=== PATIENT | female | born 1995 | race Caucasian/White ===

== ENCOUNTER 2017-06-18 08:33 | Emergency (ER) | payer MEDICAID ==
[2017-06-18] MEDS: ACETAMINOPHEN 500 MG TAB PO (10:59)
[2017-06-18 11:11] LABS: ADD MAN DIFF? NO
[2017-06-18 11:15] LABS: WHITE BLOOD COUNT 8.6 10^3/ul (4.8-10.8)
[2017-06-18 11:15] LABS: BASOPHILS % 0.4 % (0.0-2.0); EOSINOPHILS # 0.1 10^3/ul (0.0-0.5); EOSINOPHILS % 1.2 % (0.0-7.0); HEMATOCRIT 35.8 % (37.0-47.0); HEMOGLOBIN 12.5 g/dl (12.0-16.0); LYMPHOCYTES # 2.6 10^3/ul (0.8-2.9); LYMPHOCYTES % 30.1 % (15.0-51.0); MEAN CORPUSCULAR HEMOGLOBIN 31.6 pg (29.0-33.0); MEAN CORPUSCULAR HGB CONC 34.9 g/dl (32.0-37.0); MEAN CORPUSCULAR VOLUME 90.6 fl (82.0-101.0); MEAN PLATELET VOLUME 10.8 fl (7.4-10.4); MONOCYTE # 0.4 10^3/ul (0.3-0.9); NEUTROPHIL # 5.4 10^3/ul (1.6-7.5); NEUTROPHILS % 62.8 % (39.0-77.0); PLATELET COUNT 184 10^3/UL (140-415); RED BLOOD COUNT 3.95 10^6/ul (4.20-5.40); RED CELL DISTRIBUTION WIDTH 12.6 % (11.5-14.5)
[2017-06-18 11:19] LABS: ADD UMIC NO; UR ASCORBIC ACID NEGATIVE (NEGATIVE); UR BILIRUBIN (Dip) NEGATIVE (NEGATIVE); UR BLOOD (Dip) NEGATIVE (NEGATIVE); UR CLARITY SLIGHTLY CLOUDY (CLEAR); UR COLOR YELLOW (YELLOW); UR GLUCOSE (Dip) NEGATIVE (NEGATIVE); UR KETONES (Dip) NEGATIVE (NEGATIVE); UR LEUKOCYTE ESTERASE (Dip) NEGATIVE Leu/ul (NEGATIVE); UR MUCUS FEW /HPF (NONE SEEN); UR NITRITE (Dip) NEGATIVE (NEGATIVE); UR RBC 3 /HPF (0-5); UR SPECIFIC GRAVITY (Dip) 1.021 (1.003-1.030); UR SQUAMOUS EPITHELIAL CELL MODERATE /HPF (FEW); UR TOTAL PROTEIN (Dip) NEGATIVE (NEGATIVE); UR UROBILINOGEN (Dip) NEGATIVE (NEGATIVE); UR WBC 2 /HPF (0-5)
[2017-06-18 11:33] LABS: ALANINE AMINOTRANSFERASE 28 IU/L (13-69); ALBUMIN 4.2 g/dl (3.3-4.9); ALBUMIN/GLOBULIN RATIO 1.23; ALKALINE PHOSPHATASE 44 IU/L (42-121); ANION GAP 13 (8-16); ASPARTATE AMINO TRANSFERASE 15 IU/L (15-46); BILIRUBIN,INDIRECT 0.3 mg/dl (0-1.1); BILIRUBIN,TOTAL 0.3 mg/dl (0.2-1.3); BLOOD UREA NITROGEN 9 mg/dl (7-20); CALCIUM 8.8 mg/dl (8.4-10.2); CARBON DIOXIDE 26 mmol/L (21-31); CHLORIDE 102 mmol/L (97-110); CREATININE 0.47 mg/dl (0.44-1.00); GLUCOSE 83 mg/dl (70-220); POTASSIUM 3.7 mmol/L (3.5-5.1); SODIUM 137 mmol/L (135-144); TOTAL PROTEIN 7.6 g/dl (6.1-8.1)
== END 2017-06-18 12:55 | disposition home or self-care (01) ==
LOC: FTE 08:33
DX: O26.891 Other specified pregnancy related conditions, first trimester (principal); R10.33 Periumbilical pain; R10.32 Left lower quadrant pain; O99.89 Other specified diseases and conditions complicating pregnancy, childbirth and the puerperium; M54.5 Low back pain; R10.2 Pelvic and perineal pain; Z3A.11 11 weeks gestation of pregnancy
CPT/HCPCS: 36415; 76705; 76801; 80053; 81001; 81003; 84702; 85025; 86900; 86901; 99284-25

== ENCOUNTER 2017-09-19 09:32 | Outpatient (CLI) | payer MEDICAID | END 2017-09-19 14:55 | disposition home or self-care (01) | LOC: OBT 09:32 → L-D 09:33 → OBT 14:55 | DX: O26.892 Other specified pregnancy related conditions, second trimester (principal); M54.5 Low back pain; R10.2 Pelvic and perineal pain; Z3A.24 24 weeks gestation of pregnancy | CPT/HCPCS: 76815 ==

== ENCOUNTER 2018-01-08 08:52 | Outpatient (CLI) | payer MEDICAID | END 2018-01-08 11:27 | disposition home or self-care (01) | LOC: OBT 08:52 → L-D 08:52 → OBT 11:27 | DX: O48.0 Post-term pregnancy (principal); Z3A.40 40 weeks gestation of pregnancy | CPT/HCPCS: 76818 ==

== ENCOUNTER 2018-01-10 17:08 | Inpatient (IN) | payer MEDICAID ==
[2018-01-10] MEDS ORDERED: METHYLERGONOVINE 0.2 MG INJ IM (18:00)
[2018-01-10] MEDS ORDERED: MISOPROSTOL 200 MCG TAB PR (18:00)
[2018-01-10] MEDS ORDERED: OXYTOCIN 30 UNITS/LR 500 ML IV (18:00)
[2018-01-10] MEDS ORDERED: IBUPROFEN 600 MG TAB PO (18:00)
[2018-01-10] MEDS ORDERED: CARBOPROST 250 MCG INJ IM (18:00)
[2018-01-10] MEDS ORDERED: OXYCODONE/ACETAMINOPHEN (5/325) TAB PO (18:00)
[2018-01-10] MEDS ORDERED: LIDOCAINE 1% (MPF) 30 ML INJ INJ (18:00)
[2018-01-10] MEDS: LACTATED RINGER'S 1,000 ML IV* (19:59)
[2018-01-10 20:00] LABS: ADD MAN DIFF? NO
[2018-01-10 20:04] LABS: WHITE BLOOD COUNT 8.6 10^3/ul (4.8-10.8)
[2018-01-10 20:04] LABS: BASOPHILS % 0.5 % (0.0-2.0); EOSINOPHILS # 0.2 10^3/ul (0.0-0.5); EOSINOPHILS % 1.9 % (0.0-7.0); HEMATOCRIT 34.5 % (37.0-47.0); LYMPHOCYTES # 2.7 10^3/ul (0.8-2.9); LYMPHOCYTES % 30.8 % (15.0-51.0); MEAN CORPUSCULAR HEMOGLOBIN 32.4 pg (29.0-33.0); MEAN CORPUSCULAR HGB CONC 34.8 g/dl (32.0-37.0); MEAN CORPUSCULAR VOLUME 93.2 fl (82.0-101.0); MEAN PLATELET VOLUME 11.9 fl (7.4-10.4); MONOCYTE # 0.8 10^3/ul (0.3-0.9); MONOCYTES % 8.9 % (0.0-11.0); NEUTROPHIL # 4.8 10^3/ul (1.6-7.5); NEUTROPHILS % 55.9 % (39.0-77.0); PLATELET COUNT 166 10^3/UL (140-415)
[2018-01-10] MEDS: MISOPROSTOL 25 MCG CAPSULE PO (20:08)
[2018-01-10 20:24] LABS: INR 1.02; PARTIAL THROMBOPLASTIN TIME 31.1 Sec (25.0-35.0); PROTIME 13.5 Sec (11.9-14.9); PT RATIO 1.1
[2018-01-11] MEDS: MISOPROSTOL 25 MCG CAPSULE PO ×2 (00:07→06:23)
[2018-01-11] MEDS: LACTATED RINGER'S 1,000 ML IV* ×4 (01:59→15:13)
[2018-01-11] MEDS: BUTORPHANOL 2 MG INJ IV (11:11)
[2018-01-11] MEDS ORDERED: FENTAnyl 2MCG/ML-ROPIV 0.2% 100 ML (13:22)
[2018-01-11] MEDS ORDERED: OXYTOCIN 30 UNITS/LR 500 ML IV (13:30)
[2018-01-11] MEDS ORDERED: NALOXONE (0.4 MG/ML) INJ IV (14:00)
[2018-01-11] MEDS ORDERED: FENTAnyl 2MCG/ML-ROPIV 0.2% 100 ML BAG EPI (14:00)
[2018-01-11 15:59] LABS: RAPID PLASMA REAGIN NONREACTIVE (NR)
[2018-01-11] MEDS: OXYTOCIN 30 UNITS/LR 500 ML IV ×3 (16:02→20:48)
[2018-01-11] MEDS ORDERED: LACTATED RINGER'S 1,000 ML IV* (16:06)
[2018-01-11] MEDS ORDERED: DEXTROSE 5%-LR 1,000 ML IV (16:06)
[2018-01-11] MEDS ORDERED: SENNA/DOCUSATE NA (8.6MG/50MG) TAB PO (16:30)
[2018-01-11] MEDS ORDERED: ACETAMINOPHEN 325 MG TAB PO (16:30)
[2018-01-11] MEDS ORDERED: MISOPROSTOL 200 MCG TAB PR (16:30)
[2018-01-11] MEDS ORDERED: DIBUCAINE 1% 30 GM OINT PR (16:30)
[2018-01-11] MEDS ORDERED: CARBOPROST 250 MCG INJ IM (16:30)
[2018-01-11] MEDS ORDERED: ZOLPIDEM 5 MG TAB PO (16:30)
[2018-01-11] MEDS ORDERED: ONDANSETRON 4 MG INJ IV (16:30)
[2018-01-11] MEDS ORDERED: OXYCODONE/ASPIRIN (4.88/325) TAB PO (16:30)
[2018-01-11] MEDS ORDERED: DIPHENHYDRAMINE 50 MG INJ IV (16:30)
[2018-01-11] MEDS: METHYLERGONOVINE 0.2 MG INJ IM (17:24)
[2018-01-11] MEDS: ONDANSETRON 4 MG INJ IV (17:48)
[2018-01-11] MEDS: IBUPROFEN 600 MG TAB PO ×2 (18:41→23:42)
[2018-01-11] MEDS: BENZOCAINE 20% 56 ML SPRAY TOP (18:41)
[2018-01-11] MEDS: WITCH HAZEL/GLYCERIN PAD PR (18:41)
[2018-01-11] MEDS: LANOLIN 7 GM TUBE TOP (18:42)
[2018-01-12] MEDS: OXYTOCIN 30 UNITS/LR 500 ML IV (00:21)
[2018-01-12] MEDS: IBUPROFEN 600 MG TAB PO ×4 (06:00→23:31)
[2018-01-12 09:24] LABS: ADD MAN DIFF? NO
[2018-01-12 09:37] LABS: WHITE BLOOD COUNT 10.6 10^3/ul (4.8-10.8)
[2018-01-12 09:37] LABS: BASOPHILS % 0.3 % (0.0-2.0); EOSINOPHILS # 0.1 10^3/ul (0.0-0.5); HEMATOCRIT 32.2 % (37.0-47.0); HEMOGLOBIN 11.1 g/dl (12.0-16.0); LYMPHOCYTES # 2.6 10^3/ul (0.8-2.9); LYMPHOCYTES % 24.9 % (15.0-51.0); MEAN CORPUSCULAR HGB CONC 34.5 g/dl (32.0-37.0); MEAN CORPUSCULAR VOLUME 92.8 fl (82.0-101.0); MEAN PLATELET VOLUME 11.9 fl (7.4-10.4); MONOCYTE # 0.8 10^3/ul (0.3-0.9); MONOCYTES % 7.2 % (0.0-11.0); PLATELET COUNT 138 10^3/UL (140-415); RED BLOOD COUNT 3.47 10^6/ul (4.20-5.40); RED CELL DISTRIBUTION WIDTH 12.9 % (11.5-14.5)
[2018-01-12 09:40] LABS: POSITIVE DIFF @See below
[2018-01-13] MEDS: IBUPROFEN 600 MG TAB PO ×2 (06:06→11:59)
[2018-01-13] MEDS: MEASLES,MUMPS,RUBELLA VACCINE INJ SC* (09:24)
[2018-01-13] MEDS: DIPHTH/TET/ACEL PERTUSS (ADULT) 0.5 ML VIAL IM* (10:33)
== END 2018-01-13 14:40 | disposition home or self-care (01) | DRG 775 ==
LOC: L-D 17:08 → PP1 01-11 18:35
PROVIDERS: Obstetrics & Gynecology
PROC: 10E0XZZ Delivery of Products of Conception, External Approach (ICD-10-PCS; principal; 2018-01-11)
PROC: 3E0234Z Introduction of Serum, Toxoid and Vaccine into Muscle, Percutaneous Approach (ICD-10-PCS; 2018-01-13)
DX: O80 Encounter for full-term uncomplicated delivery (principal); Z3A.40 40 weeks gestation of pregnancy; Z23 Encounter for immunization
CPT/HCPCS: 62319; 85025; 85610; 85730; 86592; 86850; 86900; 86901; 90715; 99464